=== PATIENT | male | born 1940 | race Caucasian/White ===

== ENCOUNTER 2019-03-08 11:33 | Emergency (ER) | payer OTHER ==
[~2019-03-08] VITALS: Ht 162.6 cm; Wt 47.2 kg
[~2019-03-08 11:33] MED LIST: NABUMETONE500 MG PO; PERCOCET 5/3251 TAB PO
== END 2019-03-08 14:18 | disposition home or self-care (01) ==
LOC: ER 11:33
DX: S43.014A Anterior dislocation of right humerus, initial encounter (principal); W18.09XA Striking against other object with subsequent fall, initial encounter; Y93.89 Activity, other specified; Y92.413 State road as the place of occurrence of the external cause; Y99.8 Other external cause status